=== PATIENT | female | born 1960 | race Caucasian/White ===

== ENCOUNTER 2017-08-21 00:24 | Emergency (ER) | payer OTHER ==
[~2017-08-21] VITALS: Ht 165.1 cm; Wt 75.0 kg
[~2017-08-21 00:24] MED LIST: ALPR1TAB2 PO; ATEN25TA PO; HYDR-565 PO; ZOLP10TA5 PO
[2017-08-21] MEDS ORDERED: diphenhydrAMINE 50 mg/ml inj IM ONE (00:40)
[2017-08-21] MEDS ORDERED: LORazepam 2 mg/ml vial IM ONE (00:40)
[2017-08-21] MEDS ORDERED: haloperidol lactate 5mg/ml inj IM ONE (00:40)
[2017-08-21 01:37] LABS: BASOPHILS # (AUTO) 0.1 X10'3 (0-0.2); BASOPHILS % (AUTO) 1.2 % (0-1); EOSINOPHILS # (AUTO) 0.1 X10'3 (0-0.9); EOSINOPHILS % (AUTO) 2.2 % (0-6); HEMATOCRIT 41.4 % (35.0-45.0); HEMOGLOBIN 14.4 g/dl (12.0-16.0); LYMPHOCYTES # (AUTO) 2.6 X10'3 (1.1-4.8); MEAN CORPUSCULAR HGB CONC 34.8 % (33.0-36.5); MEAN CORPUSCULAR VOLUME 89.1 FL (78-98); MEAN PLATELET VOLUME 6.9 FL (7.4-10.4); MONOCYTES # (AUTO) 0.4 X10'3 (0-0.9); MONOCYTES % (AUTO) 6.3 % (2-12); NEUTROPHILS # (AUTO) 2.5 X10'3 (1.8-7.7); NEUTROPHILS % (AUTO) 44.3 % (42-75); PLATELET COUNT 216 X10'3 (140-440); RED BLOOD COUNT 4.65 X10'6 (4.20-5.60); RED CELL DISTRIBUTION WIDTH 13.6 % (11.5-14.5); WHITE BLOOD COUNT 5.7 X10'3 (4.5-11.0)
[2017-08-21 01:40] LABS: ALANINE AMINOTRANSFERASE 40 U/L (12-78); ALBUMIN 3.6 G/DL (3.4-5.0); ALBUMIN/GLOBULIN RATIO 0.9 (1.1-1.5); ALKALINE PHOSPHATASE 138 IU/L (46-116); ANION GAP 12 (8-16); ASPARTATE AMINO TRANSFERASE 31 U/L (10-37); BILIRUBIN,TOTAL 0.4 MG/DL (0.1-1.0); BLOOD UREA NITROGEN 16 MG/DL (7-18); BUN/CREATININE RATIO 19.5 (6.6-38.0); CALCIUM 9.7 MG/DL (8.5-10.1); CHLORIDE 108 MMOL/L (99-107); CREATININE 0.82 MG/DL (0.40-0.90); ETHANOL 0.156 GM/DL (0.0-0.010); GLUCOSE 99 MG/DL (70-104); POTASSIUM 3.9 MMOL/L (3.5-5.1); SODIUM 147 MMOL/L (135-145); TOTAL CARBON DIOXIDE 27.4 MMOL/L (24-32); TOTAL PROTEIN 7.6 G/DL (6.4-8.2); eGFR 72 ML/MIN
[2017-08-21 01:43] LABS: ACETAMINOPHEN < 2.0 UG/ML (10-30)
[2017-08-21 08:02] LABS: URINE HCG NEGATIVE (NEG)
[2017-08-21 08:13] LABS: URINE AMPHETAMINE SCREEN NEGATIVE (Neg); URINE BARBITUATE SCREEN NEGATIVE (Neg); URINE BENZODIAZEPINES SCREEN POSITIVE (Neg); URINE CANNABINOID SCREEN NEGATIVE (Neg); URINE COCAINE SCREEN NEGATIVE (Neg); URINE METHADONE SCREEN NEGATIVE (Neg); URINE OPIATE SCREEN POSITIVE (Neg); URINE PHENCYCLIDINE SCREEN NEGATIVE (Neg)
[2017-08-21] MEDS ORDERED: ALPRAZolam 0.5mg tablet PO PRN (08:50)
[2017-08-21] MEDS: HYDROcodone/acetaminophen 10/325mg tab PO PRN (12:39)
[2017-08-21] MEDS: zolpidem 5mg tablet PO PRN (20:23)
[2017-08-21] MEDS ORDERED: atenolol 25mg tablet PO SCH (21:00)
[2017-08-22] MEDS: HYDROcodone/acetaminophen 10/325mg tab PO PRN ×3 (00:24→20:35)
[2017-08-22] MEDS ORDERED: PRAZ2CAP2 PO (00:34)
[2017-08-22] MEDS: prazosin 1mg capsule PO SCH ×2 (01:19→22:40)
[2017-08-22] MEDS: ALPRAZolam 0.5mg tablet PO PRN ×2 (12:24→21:41)
[2017-08-22] MEDS ORDERED: atenolol 25mg tablet PO SCH (12:30)
[2017-08-22 15:27] LABS: CLARITY,URINE Clear (Clear); COLOR,URINE Yellow (Yellow); GLUCOSE, URINE Negative (Neg); KETONES,URINE Negative (Neg); LEUKOCYTE ESTERASE ,URINE Trace (Neg); NITRITES, URINE Negative (Neg); OCCULT BLOOD,URINE Negative (Neg); PROTEIN,URINE Negative (Neg); UROBILINOGEN,URINE 0.2 E.U/dL (0.2-1.0)
[2017-08-22 15:30] LABS: UA COLLECTION TYPE CLN CATCH MIDSTREAM
[2017-08-22 15:37] LABS: BACTERIA,URINE 4+ /HPF (Neg); RBC,URINE NONE SEEN /HPF (0-2); SQUAMOUS EPITHELIAL CELL,UR NONE SEEN /LPF (FEW); WBC,URINE NONE SEEN /HPF (0-4)
[2017-08-22] MEDS ORDERED: magnesium hydroxide 30ml (MOM) UD suspension PO ONE (20:30)
[2017-08-22] MEDS: zolpidem 5mg tablet PO PRN (22:39)
[2017-08-23] MEDS: HYDROcodone/acetaminophen 10/325mg tab PO PRN (00:45)
[2017-08-23 12:18] VITALS: BP 122/86
== END 2017-08-23 10:50 | disposition home or self-care (01) ==
LOC: ER 00:25
DX: F10.129 Alcohol abuse with intoxication, unspecified (principal); F29 Unspecified psychosis not due to a substance or known physiological condition; I10 Essential (primary) hypertension; G89.29 Other chronic pain; F32.9 Major depressive disorder, single episode, unspecified; Z90.710 Acquired absence of both cervix and uterus
CPT/HCPCS: 36415; 80053; 80305; 80320; 80329; 81001; 81025; 84443; 85025; 87077; 87088; 87186; 96372; 99284; J1200; J1630; J2060

== ENCOUNTER 2019-12-25 15:37 | Emergency (ER) | payer SELFPAY ==
[~2019-12-25] VITALS: Ht 165.1 cm; Wt 70.0 kg
[~2019-12-25 15:37] MED LIST changes: +HYDR-4353 PO; -HYDR-565 PO; +PRAZ2CAP2 PO
[2019-12-25 15:49] VITALS: BP 194/99
--- NOTE | 2019-12-25 16:03 | NUR ---
pt's was very unhappy aobut not being able to come back with his . we explained the policy and let him know that she was alert, oriented and crying. pt. was getting an ekg in room 19. ekg shown to dr. jackson... no stemi.... we offered to take husbands phone number and have the provider call him with any questions they might have, or that he had...... pt. demanded to take his to another facility... we again tried to explain why we had a no visitor policy.... was adament about taking her somewhere else.
== END 2019-12-25 15:55 | disposition left against medical advice (07) ==
LOC: ER 15:39
DX: F41.9 Anxiety disorder, unspecified (principal); Z53.21 Procedure and treatment not carried out due to patient leaving prior to being seen by health care provider
CPT/HCPCS: 93005

== ENCOUNTER → 2020-03-23 | Outpatient (CLI) | payer BC | END | disposition home or self-care (01) | LOC: RAD 13:11 | PROVIDERS: ATTEND Otolaryngology | DX: R13.14 Dysphagia, pharyngoesophageal phase (principal); J34.3 Hypertrophy of nasal turbinates; J34.2 Deviated nasal septum | CPT/HCPCS: 74220; 74230 ==